=== PATIENT | female | born 1985 | race Caucasian/White ===

== ENCOUNTER 2022-06-30 05:30 | Inpatient (IN) | payer BC, SELFPAY ==
--- NOTE | 2022-06-29 17:06 | PCM.HP.BLA ---
History and Physical Date of Admission: 06/30/22 Pre-Op History and Physical ? HPI: The patient is a 37 year old female presenting for pre-operative visit. She is scheduled for and bilateral salpingectomy, for repeat cs and desires sterilization on 06/30/22. Procedure discussed along with risks, benefits and complications. Other alternatives discussed for management. Consent form signed? Yes. ? ? PAST MEDICAL HISTORY PAST MEDICAL HISTORY Diagnosis Date ? Anemia ? ? Asthma ? ? exercise induced ? Atopic eczema ? ? hands/feet ? Depression ? ? and anxiety ? Hidradenitis suppurativa ? ? PCOS (polycystic ovarian syndrome) ? ? Post depression ? ? Thrombocytosis ? ? doagnosed 2018, sees Dr Padilla ? ? PAST SURGICAL HISTORY PAST SURGICAL HISTORY Procedure Laterality Date ? ANTERIOR DISCECTOMY ? 2007 ? DELIVERY ONLY ? 08/2015 ? , low transverse ? COLONOSCOPY FLX DX W/COLLJ SPEC WHEN PFRMD ? 01/27/2009 ? bx negative for colitis. [facility]/ Dr. Ceja ? ? ? CURRENT MEDICATIONS Current Outpatient Medications Medication Sig Dispense Refill ? blood sugar diagnostic test strip 1 Strip four times daily. Use as instructed 120 Strip 9 ? Lancets lancets 1 Each four times daily. Use as instructed 120 Each 9 ? busPIRone (BUSPAR) 10 mg tablet Take 1 tablet by mouth three times daily. 90 tablet 2 ? pantoprazole DR (PROTONIX) 40 mg tablet Take 1 tablet by mouth twice daily. 60 tablet 2 ? Ascorbic Acid (VITAMIN C) 100 mg tablet Take 100 mg by mouth once daily. ? ? ? buPROPion SR (ZYBAN SR; WELLBUTRIN SR) 150 mg 12 hr tablet TAKE ONE TABLET BY MOUTH TWICE A DAY 60 tablet 3 ? MEDICATION, NON-DATABASE Paxlovid 1 tablet PO BID for 5 days. 10 Each 0 ? iron polysaccharide complex (FERREX-150) 150 mg iron capsule TAKE ONE CAPSULE BY MOUTH EVERY DAY 100 capsule 0 ? aspirin, enteric coated (ASPIRIN, ENTERIC COATED) 81 mg EC tablet Take 1 tablet by mouth once daily. 30 tablet 0 ? multivitamin (NOE ) 28 mg iron- 800 mcg tab Take 1 tablet by mouth once daily. ? ? ? LACTOBACILLUS COMBO NO.6 (PROBIOTIC COMPLEX ORAL) Take 1 tablet by mouth once daily. ? ? ? No current facility-administered medications for this visit. ? ? ALLERGIES: Dicyclomine ? PERSONAL HISTORY: SOCIAL HISTORY Social History ? Tobacco Use ? Smoking status: Never ? Smokeless tobacco: Never Vaping Use ? Vaping Use: Never used Substance Use Topics ? Alcohol use: Not Currently ? ? Comment: rarely ? Drug use: No ? FAMILY HISTORY: FAMILY HISTORY FAMILY HISTORY Problem Relation Age of Onset ? Thyroid Mother ? ? Cancer Mother ? ? melanoma ? other (HEYDI exposure in utero) Mother ? ? Diabetes Father ? ? Breast Cancer Maternal Grandmother ? ? Alzheimer's Disease Maternal Grandfather ? ? ? REVIEW OF SYMPTOMS: negative except as noted above PHYSICAL EXAMINATION: ? VITALS: Blood pressure 126/80, weight 268 lb (121.6 kg), last menstrual period 09/30/2021. ? GENERAL: The patient is well nourished, well hydrated in no acute distress. , The patient is oriented to time, place, and person. NECK: full range of motion ABD: gravid, non tender ? IMPRESSION: 37yo @ 38.1 weeks ? PLAN: Repeat elective cs with bilateral salpingectomy ? Pt has been counseled on risks/benefits and alternatives of surgery including but not limited to anesthesia, bleeding, infection, injury to pelvic structures including bowel, bladder, ureters and vessels. Pt wishes to proceed with surgery at this time.risk of regret reviewed. Risk of transfusion reviewed. ? Pre and post op instructions reviewed. ? I have reviewed and updated past medical and surgical history, medications and allergies Debra Monge MD Routine Office Visit on 06/24/2022 Routine Office Visit on 06/24/2022
[2022-06-30] VITALS (16 sets, daily range): BP systolic 100–148; BP diastolic 52–74; PULSE 87–113; RESP 14–18; TEMP 35.8–37; O2SAT 95–100; BMI 51.6
[2022-06-30] MEDS: Lactated Ringers 1,000 ML 999 ML IV (06:34)
[2022-06-30 06:44] LABS: Absolute Lymphocyte Count 1.78 X10^3/uL (0.83-4.51); Absolute Neutrophil Count 8.3 X10^3/uL (2.0-7.7); Basophil# 0.03 X10^3/uL; Basophil% 0.3 % (0-1); Eosinophil# 0.18 X10^3/uL; Eosinophils% 1.6 % (0-5); Hematocrit 34.2 % (37-47); Hemoglobin 10.4 g/dL (12.0-15.0); Lymphocyte # 1.78 X10^3/ul (0.83-4.51); Lymphocyte % 16.2 % (19-41); Mean Corp Hgb Conc 30.4 g/dL (32-36); Mean Corpuscular Hgb 25.7 pg (27.0-32.0); Mean Corpuscular Volume 84.7 fL (81-99); Monocyte# 0.61 X10^3/uL; Monocyte% 5.6 % (0-10); NRBC Flagged by Analyzer 0 % (0-5); Neutrophil % 75.6 % (47-70); Platelet Count 328 K/mm3 (150-450); RBC Distribution Width CV 18.8 % (11.6-14.6); RBC Distribution Width SD 57.7 fl (35.1-43.9); Red Blood Count 4.04 M/mm3 (4.2-5.4)
[2022-06-30] MEDS: Acetaminophen 500 MG Tablet 1000 MG PO ×3 (06:45→18:48)
[2022-06-30] MEDS: Lactated Ringers 1,000 ML 150 ML IV (07:38)
[2022-06-30] MEDS: Sodium Citrate/Citric Acid 30 ML UDC PO (07:51)
--- NOTE | 2022-06-30 08:20 | FALS_PTH ---
PATIENT: AREN MONROE LOC: [facility] U#:[id number] AGE/SX: 37/F ROOM: WP007 RE06/30/[address]: Dr. Debra Ugarte, MDDOB: 1985 BED: 1 DIS: 07/02/2022 SPEC #: [id number] RECD: 06/30/22 10:02 STATUS: CECI MERRICK #: [id number] TATIANA: 06/30/22 08:[address]: Debra Ugarte DEPT: SURGICAL PATHOLOGY RECD BY: Nicole Shafer ENTERED: 06/30/22 13:04 SP TYPE: FALL TUBES OTHR DR: Dr. Aroldo Hager MD Tissues: Fallopian tube Procedures: Surgery Specimen Level II HEADER OPERATION: Tubal ligation PRE-OP DIAGNOSIS: Sterilization TISSUE SUBMITTED: Fallopian tubes, right tube stitched MICROSCOPIC DIAGNOSIS Bilateral fallopian tubes, salpingectomy: Bilateral fallopian tubes, no pathologic diagnosis. JWEELS:isamar 07/01/2022 MICROSCOPIC DESCRIPTION Slides are reviewed. GROSS DESCRIPTION Received in fixative is one container labeled with the patient's name and designated bilateral fallopian tubes, stitch right. The specimen consists of bilateral fallopian tubes including fimbrial ends. The right fallopian tube measures 5.5 cm in length and 1.0 cm in diameter and left fallopian tubes measures 6.5 cm in length and 1.0 cm in diameter. The right fallopian tube is interrupted in the middle. Sections reveal unremarkable cut surfaces. Mechatronics Technologist sections are submitted in two cassettes as follows: 1??right fallopian, 2 - left fallopian tube. / JEWELS:isamar 06/30/2022 TC:4 CPT: 57413 x2
[2022-06-30 08:29] LABS: Syphilis Antibodies Non-reactive
--- NOTE | 2022-06-30 09:13 | EX.PCM.OBRPT ---
Details Operative Information Date of Procedure: 06/30/22 Pre-Operative Diagnosis: obesity in , repeat elective c/s, 39 weeks , desires sterilization Post-Operative Diagnosis: same, live female infant, uterine window Indications Narrative: uterine window Classification: Scheduled Procedure Type: bilateral salpingectomy template fitter #1: Radha Taveras Type of Anesthesia: Spinal Antibiotic Given: Ancef 3 grams IV x1 Drain: James to straight drain Estimated Blood Loss: 600 Fluids Replaced: 1500 Procedure Start Time: 08:20 Procedure Stop Time: 09:12 Time of Delivery: 08:25 Findings Description of Procedure: After informed consent was obtained the patient was taken to the operating room she was given spinal anesthesia. sHe was placed in the supine position. She was then prepped and draped in normal sterile fashion. Once spinal anesthesia was found to be adequate skin incision was made with a scalpel in a Pfannenstiel fashion. It was carried down to the underlying layer of the fascia. Fascia was then incised midline with scapel and extended laterally using curved whittington. 2 straight Marshfield's were placed in the superior aspect of the fascial edge and the rectus muscles were dissected off sharply. . At this time the rectus muscles blunty, peritoneum entered bluntly. At this time the vesicouterine peritoneum was identified. Metzenbaum scissors were used to take down bladder adhesions. The Jamal-o retractor was placed uterine window appreciated. At that area the uterine incision was made and placenta was entered directly. 's head was then brought to the uterine incision where was delivered atraumatically. Fluid was clear. There was a loose nuchal x1 noted. That was reduced. 's mouth and nose were suctioned. Delayed cord clamping was performed. Patient had cord collection kit which was able to be collected. Prior to that being collected the was then handed to the waiting nursery team. The placenta was then removed with gentle traction. The uterus was removed from the intra-abdominal cavity is wrapped in a moist lap. Uterus was cleared of all clots and debris using a moist lap. Ring clamps were placed on the uterine angles. #1 Vicryl suture was used in a running locked fashion for the first layer. Followed by second layer with #1 Vicryl for hemostasis. At this time then the uterus was placed back into abdominal cavity uterine incision was evaluated and noted to be of good hemostasis. Tubes and ovaries were evaluated they were normal. The right tube was adherent to the side of the uterus. The tubes were grasped in an avascular area and using the LigaSure they were coagulated and ligated along the mesosalpinx to remove the tube in its entirety. The uterus was then placed back in the intra-abdominal cavity. The Jamal O retractor was removed. Great hemostasis was appreciated at this time the uterine incision was again evaluated good hemostasis was appreciated. Nicholas was placed over the uterine incision. The peritoneum was grasped with Kellys. Peritoneum was reapproximated using #2 Vicryl suture in a running fashion. Nicholas was placed over the rectus muscles. Fascia was then reapproximated using #1 PDS suture. The subcutaneous layer was irrigated using normal saline. Any small oozing that was noted was coagulated using the Bovie and the subcu layer was then closed with per #2-0 plain gut suture interrupted fashion. the subcutaneous layer 4-0 Monocryl in a subcutaneous fashion. Dry sterile dressing was applied. Instrument lap needle count were correct ?2. Anticipated normal postoperative course for this patient. Presentation: Positive for Vertex Amniotic Membrane Rupture Type: Artificial Amniotic Fluid Description: Clear Placental Delivery Description: Manual Removal Placenta Disposition: [facility] Cord Vessel Description: 3 Vessels Cord Entanglement: Around neck x 1, loose A Gender: Female (1 minute): 8 (5 minute): 9 Delayed Cord Clamping: Yes Complications Risks of Surgery Discussed w/Patient: Bleeding, Anesthesia Risks, Need for Future C-Sections, Permanency, Injury to surrounding structure(s) including bowel and bladder and Availability of other non-permanent control options Complications: none
[2022-06-30] MEDS: Oxytocin 15 Units/NS 250ml 15 UNITS/250 ML IV.SOLN 83 UNITS IV (09:38)
[2022-06-30] MEDS: Ketorolac 30 MG/ML Syringe IV ×3 (09:55→22:08)
[2022-06-30 10:43] LABS: Pathology Specimen OB SEE PATHOLOGY REPORT
[2022-06-30] MEDS: HYDROmorphone 1 MG/ML Syringe IV ×4 (11:05→22:08)
[2022-06-30] MEDS: Senna/Docusate Sodium 1 Tablet PO (12:46)
[2022-06-30] MEDS: Lactated Ringers 1,000 ML 100 ML IV (12:47)
[2022-06-30] MEDS: Enoxaparin 40 MG/0.4 ML Syringe SC (20:23)
[2022-06-30] MEDS: oxyCODONE 5 MG Tablet PO (20:46)
[2022-06-30] MEDS: 0.9% Saline Lock 10 ML Syringe IV (22:07)
[2022-07-01] MEDS: oxyCODONE 5 MG Tablet PO ×5 (00:50→23:41)
[2022-07-01] MEDS: Acetaminophen 500 MG Tablet 1000 MG PO ×4 (00:51→19:05)
[2022-07-01] MEDS: Ketorolac 30 MG/ML Syringe IV (03:58)
[2022-07-01] MEDS: 0.9% Saline Lock 10 ML Syringe IV (03:58)
[2022-07-01 04:00] VITALS: BP 142/69; PULSE 102; RESP 16; TEMP 36.9
[2022-07-01] MEDS: HYDROmorphone 1 MG/ML Syringe IV (04:03)
[2022-07-01 05:13] LABS: Hematocrit 33.6 % (37-47); Hemoglobin 10.2 g/dL (12.0-15.0); Mean Corp Hgb Conc 30.4 g/dL (32-36); Mean Corpuscular Hgb 25.9 pg (27.0-32.0); Mean Corpuscular Volume 85.3 fL (81-99); Mean Platelet Vol. 8.9 fl (6.2-12.0); Platelet Count 301 K/mm3 (150-450); RBC Distribution Width CV 18.8 % (11.6-14.6); RBC Distribution Width SD 58.6 fl (35.1-43.9); Red Blood Count 3.94 M/mm3 (4.2-5.4); White Blood Count 14.3 K/mm3 (4.4-11.0)
--- NOTE | 2022-07-01 08:34 | PCM.PROGNOTE ---
Subjective Subjective patient seen at bedside, doing well. Patient reports good pain control. lochia mild. not passing flatus Objective Data Objective Data Vital Signs: Vital Signs Temp Pulse Resp BP Pulse Ox O2 Del Method 98.5 F 102 H 16 142/69 H 97 Room Air 07/01/22 04:00 07/01/22 04:00 07/01/22 04:00 07/01/22 04:00 06/30/22 23:48 07/01/22 04:00 Oxygen Delivery Method Room Air Weight: 123.921 kg Body Mass Index (BMI) 51.6 Intake & Output: Intake and Output for Last 24 Hours 06/29/22 06/30/22 07/01/22 23:59 23:59 23:59 Intake Total 2528.33 / 2528.33 Output Total 1800 / 2400 1400 / 1400 Balance 728.33 / 128.33 -1400 / -1400 Lab / Micro Data Result Diagrams: 07/01/22 05:05 Labs: Laboratory Results - last 24 hr 06/30/22 13:00: Screen NEGATIVE, Baby's Blood Type O POSITIVE, Baby's MILO NEGATIVE 07/01/22 05:05: WBC 14.3 H, RBC 3.94 L, Hgb 10.2 L, Hct 33.6 L, MCV 85.3, MCH 25.9 L, MCHC 30.4 L, RDW Std Deviation 58.6 H, RDW Coeff of Russ 18.8 H, Plt Count 301, MPV 8.9 Physical Exam Const alert and oriented x3 General Appearance: cooperative HEENT normocephalic Neck General: normal visual inspection GI soft to palpation and non-distended GI Narrative: Fundus firm Extremity normal to inspection and no calf tenderness Skin no rashes or lesions noted Neuro oriented x3 and CN's II-XII intact bilaterally Psych mental status grossly normal Assessment & Plan Assessment/Plan (1) Obesity affecting : (2) Delivery by section: (3) History of salpingectomy: PLAN: Plan POD#1 , Doing well Routine care pain mgmt monitor VS ambulation
[2022-07-01 08:50] VITALS: BP 132/83; PULSE 107; RESP 16; TEMP 35.9; O2SAT 95
[2022-07-01] MEDS: Enoxaparin 40 MG/0.4 ML Syringe SC ×2 (10:20→22:15)
[2022-07-01] MEDS: Senna/Docusate Sodium 1 Tablet PO (10:20)
[2022-07-01] MEDS: Ibuprofen 600 MG Tablet PO ×3 (10:20→22:15)
[2022-07-01] MEDS: morphine 10 MG/ML Syringe IM (12:50)
[2022-07-01 13:30] VITALS: PULSE 117; O2SAT 98
[2022-07-01 14:38] VITALS: BP 140/70; PULSE 110; RESP 16; O2SAT 99
[2022-07-01 16:23] VITALS: BP 130/71; PULSE 110; RESP 16; TEMP 35.4; O2SAT 97
[2022-07-01 20:00] VITALS: BP 132/70; PULSE 108; RESP 15; TEMP 36.1; O2SAT 94
[2022-07-02] MEDS: Acetaminophen 500 MG Tablet 1000 MG PO ×2 (00:57→07:18)
[2022-07-02 02:32] VITALS: BP 128/69; PULSE 103; RESP 14; TEMP 36.1; O2SAT 95
[2022-07-02] MEDS: oxyCODONE 5 MG Tablet PO ×3 (03:53→12:03)
[2022-07-02] MEDS: Ibuprofen 600 MG Tablet PO ×2 (04:19→10:26)
[2022-07-02 07:45] VITALS: BP 145/84; PULSE 121; RESP 16; TEMP 37
--- NOTE | 2022-07-02 08:47 | PCM.PN.OB ---
Subjective Subjective Pain controlled Objective Data Objective Data Vital Signs: Vital Signs Temp Pulse Resp BP Pulse Ox O2 Del Method 97.0 F L 103 H 14 128/69 H 95 Room Air 07/02/22 02:32 07/02/22 02:32 07/02/22 02:32 07/02/22 02:32 07/02/22 02:32 07/02/22 02:32 Oxygen Delivery Method Room Air Weight: 273 lb 3.2 oz Body Mass Index (BMI) 51.6 Intake & Output: Intake and Output for Last 24 Hours 06/30/22 07/01/22 07/02/22 23:59 23:59 23:59 Intake Total 2528.33 / 2528.33 250 / 250 Output Total 1800 / 2400 1400 / 1400 Balance 728.33 / 128.33 -1400 / -1400 250 / 250 Lab / Micro Data Result Diagrams: 07/01/22 05:05 Physical Exam Const alert, oriented x3 and no apparent distress HEENT normocephalic GI soft to palpation, non-tender and non-distended GI Narrative: fundus firm, mid & below umbilicus Incision - bandage c/d/i Extremity normal to inspection and no calf tenderness Assessment & Plan (1) Delivery by section: COMMENT: POD#2 PLAN: Plan D/c home
--- NOTE | 2022-07-02 08:49 | DCINST_ITS ---
Discharge Instructions Follow Up Care Please Follow Up With: Debra Ugarte MD When: 2 & 6 weeks Test Results: Test results from this visit will be discussed in further detail at your follow- up appointment, if applicable. Discharge Plan Admission Admit Date/Time: 06/30/22 05:30 Primary Reason for Your Visit: section Attending Provider: Debra Ugarte Primary Care Provider: Aroldo Hager Discharge Orders/Prescriptions Prescriptions: New acetaminophen 500 mg Tablet 1,000 mg PO Q6H Qty: 0 0RF ibuprofen 600 mg Tablet 600 mg PO Q6H Qty: 0 0RF oxycodone 5 mg Tablet 5 - 10 mg PO Q4H PRN PRN (Reason: Pain Score 4-10) Qty: 0 0RF Referrals / Follow Up: Aroldo Hager MD [Primary Care Provider] - Disposition Disposition (needs filled in before D/C Order can be placed): Home, Self Care
[2022-07-02] MEDS: Hydrocortisone 2.5% Crm 1 APPLIC TOPICAL (09:09)
[2022-07-02] MEDS: Enoxaparin 40 MG/0.4 ML Syringe SC (09:10)
[2022-07-02 13:46] VITALS: BP 117/78; PULSE 116; RESP 16; TEMP 36.7; O2SAT 97
--- NOTE | 2022-07-06 12:47 | NURSING ---
On follow up visit with Clara Mcmahan mother doing well, no concerns, states had great experience and staff was so helpful.
== END 2022-07-02 15:05 | disposition home or self-care (01) | DRG 785 ==
PROVIDERS: Admitting Provider Obstetrics & Gynecology; PCP Family Medicine; Visit Provider Obstetrics & Gynecology
PROC: 10D00Z1 Extraction of Products of Conception, Low, Open Approach (ICD-10-PCS; CPT 59514; principal; 2022-06-30 07:45)
DX: O34.211 Maternal care for low transverse scar from previous cesarean delivery (principal); E66.8 Other obesity; O69.81X0 Labor and delivery complicated by cord around neck, without compression, not applicable or unspecified; Z30.2 Encounter for sterilization; Z37.0 Single live birth; Z90.79 Acquired absence of other genital organ(s); Z3A.39 39 weeks gestation of pregnancy; O99.214 Obesity complicating childbirth
CPT/HCPCS: 59050; 85025; 85027; 85461; 86780; 86850; 86900; 86901; 88302; 99221; 99252; J7120; A4216; G0378; G0463; J2405; J2790

== ENCOUNTER → 2023-10-17 | Outpatient (CLI) | payer BC, SELFPAY ==
[2023-10-17 10:28] LABS: Erythrocyte Sedimentation Rate 34 mm/hr (0-30)
[2023-10-17 10:29] LABS: Absolute Lymphocyte Count 1.75 X10^3/uL (0.83-4.51); Absolute Neutrophil Count 7.8 X10^3/uL (2.0-7.7); Basophil# 0.04 X10^3/uL; Basophil% 0.4 % (0-1); Eosinophil# 0.27 X10^3/uL; Eosinophils% 2.6 % (0-5); Hematocrit 40.8 % (37-47); Hemoglobin 12.5 g/dL (12.0-15.0); Lymphocyte # 1.75 X10^3/ul (0.83-4.51); Mean Corp Hgb Conc 30.6 g/dL (32-36); Mean Corpuscular Hgb 26.1 pg (27.0-32.0); Mean Corpuscular Volume 85.2 fL (81-99); Monocyte# 0.42 X10^3/uL; Monocyte% 4.1 % (0-10); NRBC Flagged by Analyzer 0 % (0-5); Neutrophil # 7.78 X10^3/uL (2.7-7.7); Neutrophil % 75.5 % (47-70); Platelet Count 406 K/mm3 (150-450); RBC Distribution Width CV 14.6 % (11.6-14.6); RBC Distribution Width SD 44.4 fl (35.1-43.9); Red Blood Count 4.79 M/mm3 (4.2-5.4); White Blood Count 10.3 K/mm3 (4.4-11.0)
[2023-10-17 11:25] LABS: Vitamin B12 284 pg/mL (211-911)
[2023-10-17 12:10] LABS: ALB/GLOB Ratio 0.7 RATIO (0.9-2.4); AST(SGOT) 19 U/L (15-37); Alanine Aminotransfer ALT/SGPT 42 U/L (13-56); Albumin, Serum 3.2 g/dL (3.2-5.0); Alkaline Phosphatase 88 U/L (45-117); Anion Gap 7 (5-15); BUN 8 mg/dL (7-18); BUN/Creat Ratio 11.2 RATIO (10-20); Calcium,Total 9.1 mg/dL (8.5-10.1); Chloride 107 mmol/L (98-107); Creatinine, Serum 0.71 mg/dL (0.55-1.02); EST Glomerular Filtration Rate 98 mL/min (>60); Est Glom Filt Rate - Afr Amer 118 mL/min (>60); Free T3 2.5 pg/mL (2.18-3.98); Globulin 4.4 g/dL (2.2-4.2); Glucose 107 mg/dL (74-106); LDH 172 U/L (84-246); Potassium 3.7 mmol/L (3.5-5.1); Protein, Total 7.6 g/dL (6.4-8.2); Sodium Level 138 mmol/L (136-145); T4 Free Direct 1.08 ng/dL (0.76-1.46)
[2023-10-21 22:07] LABS: Anti-Centromere B Ab <0.2 AI (0.0-0.9); Anti-Chromatin <0.2 AI (0.0-0.9); Anti-Jo <0.2 AI (0.0-0.9); Anti-Scleroderma-70 AB <0.2 AI (0.0-0.9); Anti-dsDNA Ab <1 IU/mL (0-9); Beef <0.10 kU/L (Class 0); Chocolate <0.10 kU/L (Class 0); Codfish <0.10 kU/L (Class 0); Corn <0.10 kU/L (Class 0); Egg, Whole <0.10 kU/L (Class 0); Milk (Cow) <0.10 kU/L (Class 0); Mussels <0.10 kU/L (Class 0); Peanut <0.10 kU/L (Class 0); Pork <0.10 kU/L (Class 0); RNP Ab 0.5 AI (0.0-0.9); SJOGREN'S Anti-SS-A test < 0.2 AI (0.0-0.9); SJOGREN'S Anti-SS-B test < 0.2 AI (0.0-0.9); Salmon <0.10 kU/L (Class 0); Shrimp <0.10 kU/L (Class 0); Smith Ab <0.2 AI (0.0-0.9); Soybean <0.10 kU/L (Class 0); Tuna <0.10 kU/L (Class 0); Wheat <0.10 kU/L (Class 0)
[2023-10-25 17:07] LABS: ACCA 15 units (0-90); ALCA 31 units (0-60); AMCA 45 units (0-100); Albumin 3.2 g/dL (2.9-4.4); Alpha-1-Globulins 0.3 g/dL (0.0-0.4); Alpha-2-Globulins 1.1 g/dL (0.4-1.0); Cytoplasmic Ab (C-ANCA) <1:20 titer (Neg:<1:20); Endomysial Antibody IgA Negative (Negative); Gamma Globulin 0.8 g/dL (0.4-1.8); Immunoglobulin A 253 mg/dL (87-352); Immunoglobulin E 30 IU/mL (6-495); Immunoglobulin G 940 mg/dL (586-1602); Immunoglobulin M 64 mg/dL (26-217); PROEL- TOTAL PROTEIN 6.8 g/dL (6.0-8.5); Perinuclear Ab (P-ANCA) <1:20 titer (Neg:<1:20); Vitamin A, Retinol 83.2 ug/dL (18.9-57.3); gASCA 15 units (0-50); t-Transglutaminase IgA <2 U/mL (0-3)
== END | disposition home or self-care (01) ==
LOC: LAB 09:50
PROVIDERS: PCP Family Medicine
DX: R19.7 Diarrhea, unspecified (principal); D64.9 Anemia, unspecified
CPT/HCPCS: 36415; 80053; 82306; 82607; 82784; 82785; 83516; 83615; 84165; 84439; 84443; 84481; 84590; 85025; 85652; 86003; 86005; 86036; 86140; 86225; 86235; 86255; 86256; 86334; 86671

== ENCOUNTER → 2023-10-18 | Outpatient (CLI) | payer BC, SELFPAY ==
[2023-10-21 00:07] LABS: Calprotectin, Stool 160 ug/g (0-120)
[2023-10-21 01:07] LABS: Pancreatic Elastase, Fecal > 800 (>200)
== END | disposition home or self-care (01) ==
LOC: MTLAB 08:56
PROVIDERS: PCP Family Medicine
DX: R19.7 Diarrhea, unspecified (principal)
CPT/HCPCS: 82653; 83630; 83993; 87177; 87209; 87329; 87506